=== PATIENT | male | born 1950 | race Caucasian/White ===

== ENCOUNTER → 2016-08-08 | Outpatient (CLI) | payer MEDICARE ==
[~2016-08-08] MED LIST: LISINOPRIL/HCTZ1 TA3 FT
--- NOTE | 2016-08-08 17:05 | RADIOLOGY REPORT PS360 ---
History and Indications: Hypertension hyperlipidemia family history shortness of breath and fatigue. Procedure: Patient exercised on Trell protocol 8 metastases and 30 seconds, resting heart rate was 60 beats per resting blood pressure 154/88 with exercise maximum heart rate achieved was 1 43 bpm reportedly 83% of the maximum predicted heart rate and a blood pressure was 180/90 test was stopped due to shortness of breath patient denied complained of chest pain, patient has good exercise capacity achieved 10.1 mets of workload on treadmill, the blood pressure response to exercise with adequate. Electrocardiogram: Resting electrocardiogram showed sinus rhythm, with exercise occasional premature atrial and ventricular complex is present there is 1.[address] segment depression noted from the baseline EKG. The EKG portion of the exercise Myoview is positive for ischemia. Cardiac stress and resting SPECT images: Cardiac stress and rest SPECT images were obtained using technetium 99 Myoview 10.3 MCI at rest and 31.3 MCI at stress. Gated SPECT further analysis of segmental wall motion and calculation of the ejection fraction was also done. Cardiac stress and rest SPECT images show decreased tracer activity in the inferobasal and posterobasal wall which improves on the resting images suggestive of anemia in that area. Computer derived ejection fraction is over 65% with mild posterobasal wall hypokinesis, right ventricle is normal size and contractility. Conclusion: 1. The EKG portion of the exercise Myoview is positive for ischemia, patient has good exercise capacity achieved 10.1 mets of workload on treadmill, the blood pressure response to exercise was adequate, test was stopped due to shortness of breath patient denied any complained of chest pain. 2. Scintigraphic evidence of mild reversible ischemia involving the inferolateral basal and posterobasal wall, computer derived ejection fraction is 65% with segmental wall motion abnormality described above, right ventricle is normal size and contractility. 3. Abnormal exercise Myoview study.
== END ==
LOC: RAD 05:56
DX: R06.00 Dyspnea, unspecified (principal); R53.83 Other fatigue; I10 Essential (primary) hypertension; E78.5 Hyperlipidemia, unspecified
CPT/HCPCS: A9502

== ENCOUNTER → 2017-03-06 | Outpatient (CLI) | payer MEDICARE, OTHER ==
[2017-03-06 17:14] LABS: LYMPH # 2.5 K/mm3 (0.7-4.5)
[2017-03-06 19:09] LABS: HEMOGLOBIN 13.3 g/dL (14.1-18.0)
== END ==
LOC: LAB 16:45
PROVIDERS: Physician Assistant
DX: D69.3 Immune thrombocytopenic purpura (principal)

== ENCOUNTER → 2017-03-14 | Outpatient (CLI) | payer MEDICARE, OTHER ==
[2017-03-14 14:42] LABS: HEMOGLOBIN 11.4 g/dL (14.1-18.0)
[2017-03-14 14:43] LABS: LYMPH % 19.3 % (10-50)
== END ==
LOC: LAB 13:24
PROVIDERS: Physician Assistant
DX: D69.3 Immune thrombocytopenic purpura (principal)

== ENCOUNTER → 2017-04-03 | Outpatient (CLI) | payer MEDICARE, OTHER ==
[2017-04-03 10:55] LABS: HEMOGLOBIN 13.2 g/dL (14.1-18.0); LYMPH # 2.3 K/mm3 (0.7-4.5); LYMPH % 30.6 % (10-50)
[2017-04-03 12:02] LABS: BUN 15 mg/dL (7-18)
[2017-04-03 12:05] LABS: GFR (ESTIMATED) 75 ML/MIN (>60)
== END ==
LOC: LAB 10:36
PROVIDERS: Registered Nurse
DX: D69.3 Immune thrombocytopenic purpura (principal)

== ENCOUNTER → 2017-05-01 | Outpatient (CLI) | payer MEDICARE, OTHER ==
[~2017-05-01] MED LIST changes: +FLEXERIL10 MG PO; +PREDNISONE 20MG20 MG PO
--- NOTE | 2017-05-01 11:24 | RADIOLOGY REPORT PS360 ---
[id number] VIEWS HISTORY: RT SHOULDER PAINof Patient Age: 67 years: Male Ordering Physician: Alexandro Castillo MD TECHNIQUE: 3 views right shoulder COMPARISON :None FINDINGS the humeral head and neck intact. Glenohumeral joint is intact. Appears to be adequate subacromial space on plain film. Mild /moderate degenerative changes at the AC joint. The upper right chest and right lung apex clear. Scapula unremarkable. IMPRESSION: No prominent nor acute findings. The humeral head & glenohumeral joint is intact. Mild/moderate AC joint arthropathy noted.
== END ==
LOC: RAD 10:47
DX: M25.511 Pain in right shoulder (principal)

== ENCOUNTER → 2017-05-04 | Outpatient (CLI) | payer MEDICARE, OTHER ==
[2017-05-04 13:36] LABS: LYMPH % 24.4 % (10-50)
[2017-05-04 14:00] LABS: HEMOGLOBIN 14.8 g/dL (14.1-18.0)
[2017-05-04 14:23] LABS: BUN 13 mg/dL (7-18); GFR (ESTIMATED) 84 ML/MIN (>60)
== END ==
LOC: LAB 11:41
PROVIDERS: Physician Assistant; Registered Nurse
DX: I10 Essential (primary) hypertension (principal); I25.10 Atherosclerotic heart disease of native coronary artery without angina pectoris